=== PATIENT | male | born 1965 | race Caucasian/White ===

== ENCOUNTER 2018-12-18 10:17 | Inpatient (IN) | payer BC ==
[2018-12-18] VITALS (7 sets, daily range): BP systolic 110–125; BP diastolic 66–76
[~2018-12-18] VITALS: Ht 190.5 cm; Wt 121.3 kg
[2018-12-18 10:46] LABS: BASO % 0.2 % (0.0-1.0); EOS % 0.2 % (0.0-3.0); HEMOGLOBIN 14.9 g/dl (13.5-17.5); LYMPH # 2.3 10^3/uL (1.5-4.5); LYMPH % 12.6 % (24.0-44.0); MEAN CORPUSCULAR HEMOGLOBIN 30.8 pg (27.0-33.0); MEAN CORPUSCULAR HGB CONC 34.7 g/dl (32.0-36.5); MEAN CORPUSCULAR VOLUME 88.8 fl (80.0-96.0); MONO # 0.6 10^3/uL (0.0-0.8); NEUTROPHILS # 15.2 10^3/uL (1.8-7.7); NEUTROPHILS % 83.4 % (36.0-66.0); PLATELET COUNT, AUTOMATED 363 10^3/uL (150-450); RED BLOOD COUNT 4.84 10^6/uL (4.30-6.10); WHITE BLOOD COUNT 18.2 10^3/uL (4.0-10.0)
[2018-12-18 10:56] LABS: INR 1.04; PARTIAL THROMBOPLASTIN TIME 22.7 SECONDS (25.4-37.6); PROTHROMBIN TIME 13.7 SECONDS (12.1-14.4)
[2018-12-18] MEDS ORDERED: NS 1,000 ML IV ONE (11:15)
[2018-12-18 11:30] LABS: ALBUMIN 3.7 GM/DL (3.2-5.2); ALT/SGPT 66 U/L (12-78); BILIRUBIN,DIRECT 0.2 MG/DL (0.0-0.2); BILIRUBIN,TOTAL 0.6 MG/DL (0.2-1.0); BLOOD UREA NITROGEN 18 MG/DL (7-18); CALCIUM LEVEL 8.5 MG/DL (8.5-10.1); CARBON DIOXIDE LEVEL 24 MEQ/L (21-32); CHLORIDE LEVEL 99 MEQ/L (98-107); CPK CREATINE PHOSPHOKINASE 423 U/L (39-308); CREATININE FOR GFR 1.47 MG/DL (0.70-1.30); FREE T4 0.99 NG/DL (0.76-1.46); GLOMERULAR FILTRATION RATE 53.1 (>56); GLUCOSE, FASTING 276 MG/DL (70-100); LIPASE 132 U/L (73-393); MAGNESIUM LEVEL 2.2 MG/DL (1.8-2.4); MB/CK RELATIVE INDEX 1.73 (< OR =4); POTASSIUM SERUM 3.5 MEQ/L (3.5-5.1); SODIUM LEVEL 137 MEQ/L (136-145); THYROID STIMULATING HORMONE 0.788 uIU/ML (0.358-3.740); TOTAL PROTEIN 6.7 GM/DL (6.4-8.2); TROPONIN I < 0.02 NG/ML (< 0.10)
--- NOTE | 2018-12-18 11:46 | REP ---
Chest two views HISTORY: Syncope Comparison: None The lungs are clear. The heart is normal in size. The pulmonary vasculature is normal in appearance. The bony structure is intact. IMPRESSION: No acute disease. Electronically Signed by Paulo Ryan MD 12/18/2018 10:59 A
[2018-12-18] MEDS ORDERED: NS 1,000 ML IV SCH (12:14)
--- NOTE | 2018-12-18 12:35 | REP ---
CT Head without contrast HISTORY: Syncope COMPARISON: None There is no intraparenchymal hemorrhage, acute infarct, mass or midline shift. The ventricular system is normal in appearance. There is no extra cerebral collection. There is no fracture. The visualized sinuses are clear. IMPRESSION: There is no intracranial lesion. Electronically Signed by Paulo Ryan MD 12/18/2018 12:26 P
[2018-12-18] MEDS ORDERED: VENL75CA2 PO ×2 (12:47)
[2018-12-18] MEDS ORDERED: LISI40TA PO (12:47)
[2018-12-18] MEDS ORDERED: MULTCAP PO (12:47)
[2018-12-18] MEDS ORDERED: ASPI81TA85 PO (12:47)
[2018-12-18] MEDS ORDERED: HYDR12.55 PO (12:48)
[2018-12-18] MEDS ORDERED: DEXTROSE 50% 50 ML SYRINGE IV PRN (13:15)
[2018-12-18] MEDS ORDERED: GLUCAGON FOR INJ 1 MG VIAL (J1610) SC PRN (13:15)
[2018-12-18] MEDS: NS 1,000 ML IV SCH ×2 (13:15→19:48)
[2018-12-18] MEDS ORDERED: GLUCOSE 4 GM CHEW TABLET PO PRN (13:15)
--- NOTE | 2018-12-18 14:26 | REP ---
Clinical: Abdominal pain. Technique: Axial noncontrast images from the lung bases to the pubic symphysis with coronal and sagittal re-formations. Comparison: None. Findings: A small to moderate amount of hemoperitoneum is appreciated which appears to be primarily upper abdominal with in the left upper to mid abdomen as well as in a perihepatic and peripelvic distribution. Findings are likely related to trauma possibly involving the liver, spleen, and/or bowel. Gallbladder, pancreas, bilateral adrenal glands and kidneys are relatively normal for noncontrast evaluation. No evidence for free air. No bowel obstruction. Scattered colonic diverticula noted without acute diverticulitis. Pelvis demonstrates normal bladder and age appropriate prostate/seminal vesicles. No significant adenopathy. The abdominal aorta without aneurysm or periaortic inflammatory stranding to suggest aortic injury. Musculoskeletal structures demonstrate degenerative changes and no obvious fracture is identified. Impression: Moderate amount of hemoperitoneum consistent with occult injury. Trauma involving the liver versus spleen versus bowel are within differential diagnosis and require correlation. Findings were discussed with Dr. Dahl Electronically Signed by Jose Miguel Johnson MD 12/18/2018 02:18 P
[2018-12-18 14:39] LABS: HEMOGLOBIN A1c 5.7 %
[2018-12-18 14:58] LABS: HEMATOCRIT 39.7 % (42.0-52.0)
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
[2018-12-18 17:52] LABS: APPEARANCE, URINE HAZY (CLEAR); BACTERIA, URINE AUTO NEGATIVE (NEGATIVE); BILIRUBIN, URINE AUTO NEGATIVE (NEGATIVE); BLOOD, URINE BLOOD NEGATIVE (NEGATIVE); COLOR, URINE YELLOW (YELLOW); GLUCOSE, URINE (UA) AUTO NEGATIVE (NEGATIVE); KETONE, URINE AUTO TRACE mg/dL (NEGATIVE); LEUKOCYTE ESTERASE, URINE AUTO NEGATIVE (NEGATIVE); MUCUS, URINE SMALL (NEGATIVE); NITRITE, URINE AUTO NEGATIVE (NEGATIVE); PROTEIN, URINE AUTO 1+ mg/dL (NEGATIVE); RBC, URINE AUTO 0 /HPF (0-3); SPECIFIC GRAVITY URINE AUTO 1.023 (1.002-1.035); SQUAMOUS EPITHELIAL CELL UR AU 0 /HPF (0-6); WBC, URINE AUTO 2 /HPF (0-3)
[2018-12-18] MEDS: HumaLOG INSULIN (NovoLOG) PER UNIT SC SCH ×2 (18:19→20:49)
[2018-12-18 20:05] LABS: HEMATOCRIT 35.6 % (42.0-52.0); HEMOGLOBIN 12.5 g/dl (13.5-17.5)
[2018-12-18] MEDS: FLUTICASONE PROP 0.05% NASAL SPRAY 16 GM (FLONASE) NARES SCH (21:06)
[2018-12-18] MEDS ORDERED: HEPARIN SOD (PORCINE) 5000 UNITS/ML VIAL SC SCH (22:00)
[2018-12-19] VITALS (15 sets, daily range): BP systolic 108–144; BP diastolic 63–86
[2018-12-19 00:38] LABS: HEMATOCRIT 33.9 % (42.0-52.0); HEMOGLOBIN 11.7 g/dl (13.5-17.5)
[2018-12-19 04:37] LABS: BASO % 0.1 % (0.0-1.0); EOS % 0.2 % (0.0-3.0); HEMATOCRIT 32.8 % (42.0-52.0); HEMOGLOBIN 11.5 g/dl (13.5-17.5); LYMPH # 2.3 10^3/uL (1.5-4.5); LYMPH % 15.9 % (24.0-44.0); MEAN CORPUSCULAR HEMOGLOBIN 31.1 pg (27.0-33.0); MEAN CORPUSCULAR HGB CONC 35.1 g/dl (32.0-36.5); MEAN CORPUSCULAR VOLUME 88.6 fl (80.0-96.0); MONO # 0.8 10^3/uL (0.0-0.8); MONO % 5.4 % (0.0-5.0); NEUTROPHILS # 11.5 10^3/uL (1.8-7.7); WHITE BLOOD COUNT 14.7 10^3/uL (4.0-10.0)
[2018-12-19 04:39] LABS: PLATELET COUNT, AUTOMATED 226 10^3/uL (150-450)
[2018-12-19 04:58] LABS: BLOOD UREA NITROGEN 17 MG/DL (7-18); CALCIUM LEVEL 8.4 MG/DL (8.5-10.1); CARBON DIOXIDE LEVEL 28 MEQ/L (21-32); CHLORIDE LEVEL 105 MEQ/L (98-107); CREATININE FOR GFR 1.02 MG/DL (0.70-1.30); GLOMERULAR FILTRATION RATE > 60.0 (>56); GLUCOSE, FASTING 104 MG/DL (70-100); MAGNESIUM LEVEL 2.2 MG/DL (1.8-2.4); SODIUM LEVEL 139 MEQ/L (136-145)
--- NOTE | 2018-12-19 07:17 | ECGEPIP ---
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
[2018-12-19 07:39] LABS: ALBUMIN 3.2 GM/DL (3.2-5.2); ALT/SGPT 50 U/L (12-78); BILIRUBIN,DIRECT 0.2 MG/DL (0.0-0.2); BILIRUBIN,TOTAL 0.6 MG/DL (0.2-1.0); CPK CREATINE PHOSPHOKINASE 260 U/L (39-308); TOTAL PROTEIN 6.2 GM/DL (6.4-8.2)
[2018-12-19] MEDS ORDERED: ISOVUE-370 76% 100ML VIAL (Q9967) As Ordered ONE (08:13)
[2018-12-19] MEDS: NS 1,000 ML IV SCH ×3 (08:56→22:11)
[2018-12-19] MEDS: HumaLOG INSULIN (NovoLOG) PER UNIT SC SCH ×4 (09:05→21:00)
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
--- NOTE | 2018-12-19 10:27 | REP ---
Clinical: Trauma. Hemoperitoneum. Technique: Axial contrast enhanced images from the lung bases to the pubic symphysis using aortic angiographic technique with coronal and sagittal re-formations as well as 3-D MIP re-formations of the abdominal aorta and branch vessels. 100 ml Isovue 370 intravenous contrast administered without complication. Findings: Lung bases demonstrate mild right basilar atelectasis. Visualized heart and pericardium normal. Small to moderate amount of hemoperitoneum is again appreciated primarily adjacent to the the liver extending along the right paracolic gutter into the pelvis. There is also an area of ill-defined trauma/hemorrhage along the left anterior abdomen (images 35-105) which in part seems to surround a small branch vessels from the splenic artery suggesting the possibility of small lacerated vessel. Overall comparison to prior examination represents a relatively stable amount of hemoperitoneum which is not significantly increased over the given time frame. The abdominal aorta and major branch vessels are intact and normal and without evidence for associated vascular injury. No definite hepatic, splenic, pancreatic lesion or traumatic injury is identified based on current arterial phased images. Gallbladder, bilateral adrenal glands and kidneys are normal. No obvious bowel obstruction. Colonic diverticulosis noted without acute diverticulitis. Pelvis demonstrates normal bladder and age appropriate prostate/seminal vesicles. Moderate amount of hemoperitoneum in the pelvis identified as described above. No free air. No adenopathy. Inferior vena cava and visualized major venous structures appear intact. Surrounding musculoskeletal structures demonstrate age-related changes without focal osseous abnormality. Impression: 1. Continued evidence for moderate hemoperitoneum which is not significantly increased since prior examination. Definite cause for hemoperitoneum is not identified with certainty. However a laceration to a small splenic arterial branch vessel cannot be excluded. The possibility of subtle hepatic injury is not identified but cannot be excluded as well. 2. Normal appearance of the aorta and major branch vessels without evidence for injury. No evidence for injury to the IVC or main venous branch vessels. 3. Mild right basilar atelectasis. Electronically Signed by Jose Miguel Johnson MD 12/19/2018 10:19 A
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
[2018-12-19 12:05] LABS: HEMATOCRIT 32.8 % (42.0-52.0); HEMOGLOBIN 11.3 g/dl (13.5-17.5)
[2018-12-19 21:08] LABS: HEMATOCRIT 31.3 % (42.0-52.0); HEMOGLOBIN 10.6 g/dl (13.5-17.5)
[2018-12-20] VITALS (10 sets, daily range): BP systolic 128–156; BP diastolic 67–81
[2018-12-20 01:00] LABS: HEMATOCRIT 28.6 % (42.0-52.0); HEMOGLOBIN 9.8 g/dl (13.5-17.5)
[2018-12-20] MEDS: NS 1,000 ML IV SCH (03:51)
[2018-12-20 06:02] LABS: BASO % 0.3 % (0.0-1.0); EOS % 0.1 % (0.0-3.0); HEMATOCRIT 28.2 % (42.0-52.0); HEMOGLOBIN 9.9 g/dl (13.5-17.5); LYMPH # 1.5 10^3/uL (1.5-4.5); LYMPH % 21.3 % (24.0-44.0); MEAN CORPUSCULAR HEMOGLOBIN 31.5 pg (27.0-33.0); MEAN CORPUSCULAR HGB CONC 35.1 g/dl (32.0-36.5); MEAN CORPUSCULAR VOLUME 89.8 fl (80.0-96.0); MONO # 0.4 10^3/uL (0.0-0.8); MONO % 6.2 % (0.0-5.0); NEUTROPHILS % 71.8 % (36.0-66.0); PLATELET COUNT, AUTOMATED 170 10^3/uL (150-450); RED BLOOD COUNT 3.14 10^6/uL (4.30-6.10)
[2018-12-20 06:18] LABS: BLOOD UREA NITROGEN 11 MG/DL (7-18); CALCIUM LEVEL 8.3 MG/DL (8.5-10.1); CARBON DIOXIDE LEVEL 27 MEQ/L (21-32); CHLORIDE LEVEL 109 MEQ/L (98-107); CREATININE FOR GFR 0.81 MG/DL (0.70-1.30); GLOMERULAR FILTRATION RATE > 60.0 (>56); GLUCOSE, FASTING 94 MG/DL (70-100); MAGNESIUM LEVEL 2.3 MG/DL (1.8-2.4); POTASSIUM SERUM 3.9 MEQ/L (3.5-5.1); SODIUM LEVEL 141 MEQ/L (136-145)
[2018-12-20] MEDS: HumaLOG INSULIN (NovoLOG) PER UNIT SC SCH ×4 (07:30→20:32)
[2018-12-20] MEDS: FLUTICASONE PROP 0.05% NASAL SPRAY 16 GM (FLONASE) NARES SCH (08:29)
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
[2018-12-20] MEDS: LISINOPRIL 40 MG TAB PO SCH (14:38)
[2018-12-20] MEDS: VENLAFAXINE **XR** 75MG CAPSULE PO SCH (14:38)
[2018-12-20] MEDS: MULTIVITAMINS/MINERALS THERAP 1 TAB PO SCH (14:38)
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
[2018-12-20 18:17] LABS: HEMATOCRIT 29.9 % (42.0-52.0); HEMOGLOBIN 10.2 g/dl (13.5-17.5)
[2018-12-20] MEDS ORDERED: VENLAFAXINE **XR** 75MG CAPSULE PO SCH (21:00)
[2018-12-21 01:50] VITALS: BP 141/79
[2018-12-21 06:51] LABS: BASO % 0.3 % (0.0-1.0); EOS # 0.1 10^3/uL (0.0-0.50); EOS % 0.7 % (0.0-3.0); HEMATOCRIT 29.8 % (42.0-52.0); HEMOGLOBIN 10.4 g/dl (13.5-17.5); LYMPH # 1.6 10^3/uL (1.5-4.5); LYMPH % 22.3 % (24.0-44.0); MEAN CORPUSCULAR HEMOGLOBIN 31.2 pg (27.0-33.0); MEAN CORPUSCULAR HGB CONC 34.9 g/dl (32.0-36.5); MEAN CORPUSCULAR VOLUME 89.5 fl (80.0-96.0); MONO # 0.5 10^3/uL (0.0-0.8); MONO % 6.3 % (0.0-5.0); NEUTROPHILS % 70.1 % (36.0-66.0); PLATELET COUNT, AUTOMATED 185 10^3/uL (150-450); RED BLOOD COUNT 3.33 10^6/uL (4.30-6.10); WHITE BLOOD COUNT 7.1 10^3/uL (4.0-10.0)
[2018-12-21 07:19] LABS: BLOOD UREA NITROGEN 11 MG/DL (7-18); CALCIUM LEVEL 8.7 MG/DL (8.5-10.1); CARBON DIOXIDE LEVEL 28 MEQ/L (21-32); CHLORIDE LEVEL 106 MEQ/L (98-107); CREATININE FOR GFR 0.82 MG/DL (0.70-1.30); GLOMERULAR FILTRATION RATE > 60.0 (>56); GLUCOSE, FASTING 100 MG/DL (70-100); MAGNESIUM LEVEL 2.1 MG/DL (1.8-2.4); POTASSIUM SERUM 3.8 MEQ/L (3.5-5.1); SODIUM LEVEL 140 MEQ/L (136-145)
[2018-12-21] MEDS: HumaLOG INSULIN (NovoLOG) PER UNIT SC SCH (07:30)
[2018-12-21 08:00] VITALS: BP 138/80
[2018-12-21] MEDS: FLUTICASONE PROP 0.05% NASAL SPRAY 16 GM (FLONASE) NARES SCH (09:00)
[2018-12-21] MEDS: VENLAFAXINE **XR** 75MG CAPSULE PO SCH (09:08)
[2018-12-21] MEDS: MULTIVITAMINS/MINERALS THERAP 1 TAB PO SCH (09:08)
[2018-12-21] MEDS: LISINOPRIL 40 MG TAB PO SCH (09:08)
--- NOTE | 2018-12-21 13:10 | ECHO ---
DATE OF SERVICE: 12/19/2018 REFERRING PROVIDER: Dr. Josue Dahl REASON FOR ECHOCARDIOGRAM: Syncope. 2D MEASUREMENTS: IVS: 1.2 cm LV: 4.9 cm LVPW : 1.2 cm LA: 3.7 cm Aorta 3.5 cm IVC 1.8 cm DOPPLER MEASUREMENTS: Peak velocity across the aortic valve: 1.6 cm/s Peak velocity across the LVOT: 0.92 m/s Mitral E: 0.62 Mitral A: 0.63 with a ratio of less than 1.0 2D COMMENTS: 1. Normal left ventricular size, wall thickness, and normal global left ventricular systolic function. The estimated left ventricular systolic ejection fraction is 60-65%. 2. Normal left atrium. Normal right atrium and the right ventricle. 3. The atrial septum appeared to be normal without evidence of defect or shunt. 4. Normal aortic root. 5. Trace pericardial effusion noted. No evidence of cardiac tamponade. 6. The aortic valve, mitral valve, and tricuspid valve appear to be normal. The pulmonic valve and proximal pulmonary artery branches were not visualized. 7. The inferior vena cava was normal in size, central venous pressure might be normal. DOPPLER: It detects trace mitral regurgitation and trace tricuspid regurgitation. The calculated pulmonary artery systolic pressure is about 30 to 35 mmHg. Abnormal relaxation pattern was noted across the mitral valve leaflets as well as the mitral annulus consistent with findings of our grade 1 left ventricular diastolic dysfunction. IMPRESSION: 1. Normal global left ventricular systolic function. There is some features of left ventricular diastolic dysfunction manifested by abnormal relaxation. 2. Trace mitral regurgitation. 3. Trace tricuspid regurgitation with probably mild pulmonary hypertension. The tricuspid valve elicited was up to 2.6 meter per second. 4. Trace pericardial effusion, no evidence of cardiac tamponade. [facility]
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
== END 2018-12-21 09:25 | disposition home or self-care (01) | DRG 253 ==
LOC: M ED 10:17 → EDBD 10:17 → M ED INP 13:09 → M ICU 16:53 → M PED 12-20 11:45
PROVIDERS: ADMIT Internal Medicine; ATTEND Internal Medicine
DX: K66.1 Hemoperitoneum (principal); N17.9 Acute kidney failure, unspecified; R73.9 Hyperglycemia, unspecified; R55 Syncope and collapse; I10 Essential (primary) hypertension; F41.9 Anxiety disorder, unspecified; E86.0 Dehydration; D72.829 Elevated white blood cell count, unspecified; I95.1 Orthostatic hypotension; Z79.899 Other long term (current) drug therapy; Z79.82 Long term (current) use of aspirin; D62 Acute posthemorrhagic anemia